=== PATIENT | female | born 1965 | race Caucasian/White ===

== ENCOUNTER 2016-06-20 18:46 | Emergency (ER) | payer SELFPAY ==
[~2016-06-20] VITALS: Ht 165.1 cm; Wt 61.0 kg
[~2016-06-20 18:46] MED LIST: LORA0.5T PO; PROZ20CA11 PO; WELL150T PO
[2016-06-20 18:52] VITALS: BP 145/85; PULSE 93; RESP 16; TEMP 98.1; O2SAT 95
--- NOTE | 2016-06-20 19:06 | PD ---
HPI Chief Complaint: ENT Complaint Time Seen by Provider: 18:56 Travel History International Travel<30 days: No Contact w/Intl Traveler<30days: No Traveled to known affect area: No History of Present Illness HPI 50-year-old female with a history of bipolar disorder currently off her meds comes in with complaints of sore throat, and bilateral ear pain. Patient has some lip lesions from the dry chapped lips. She has not felt well but denies specific fever. She states he's had some stomach upset and vomiting in the last 2 days. Patient normally takes Wellbutrin 350 mg and Prozac 40 mg daily. Patient states she's been out of his meds for quite some time. Patient states history of strep in the past and she is concerned she may have it again. She is allergic to erythromycin and Keflex. PFSH Past Medical History Asthma: No Bipolar Disorder: Yes ([employer]) Anxiety: Yes Depression: Yes Cancer: No Cardiovascular Problems: No Chemotherapy: No COPD: No Diminished Hearing: No Genitourinary: No Musculoskeletal: No Neurologic: No Psychiatric: Yes Reproductive: No Respiratory: Yes (PNEUMOTHORAX TIMES 3) Radiation Therapy: No Sickle Cell Disease: No Sleep Apnea: No Past Surgical History Abdominal Surgery: No AICD: No Arteriovenous Shunt: No Cardiac Surgery: No Ear Surgery: No Endocrine Surgery: No Eye Surgery: No Genitourinary Surgery: No Gynecologic Surgery: Yes (Partial Hyst) Hysterectomy: Yes (PARTIAL) Insulin Pump: No Joint Replacement: No Oral Surgery: No Pacemaker: No Thoracic Surgery: Yes (pneumothorax) Other Surgery: Yes Social History Alcohol Use: Yes (occ beer) Tobacco Use: Yes (1/2) Substance Use: No Allergies-Medications (Allergen,Severity, Reaction): Coded Allergies: Keflex (Verified Allergy, Severe, RASH, 06/20/16) E-Mycin (Verified Allergy, Mild, RASH, 06/20/16) Reported Meds & Prescriptions Reported Meds & Active Scripts Active Bupropion HCl ER 12 HR (Bupropion HCl) 150 Mg Tab 150 Mg PO BID Prozac (Fluoxetine HCl) 40 Mg Cap 40 Mg PO DAILY Amoxicillin 875 Mg Tab 875 Mg PO BID Physical Exam Narrative GENERAL: Patient appears somewhat manic and in mild distress. SKIN: Warm and dry. Normal color. Normal turgor. Patient has Jf the lower quarters bilaterally. HEAD: Atraumatic. Normocephalic. EYES: Pupils equal and round. No scleral icterus. No injection or drainage. ENT: No nasal bleeding or discharge. Mucous membranes pink and moist. Patient has erythematous pharynx with satellite lesions consistent with strep throat with mild to moderate tonsillitis with white exudate. Airway is patent. Uvula is midline. TMs are somewhat dull bilaterally without significant injection. NECK: Trachea midline. No JVD. Supple and nontender with mild anterior cervical lymphadenopathy. CARDIOVASCULAR: Regular rate and rhythm. RESPIRATORY: No accessory muscle use. Clear to auscultation. Breath sounds equal bilaterally. GASTROINTESTINAL: Abdomen soft, non-tender, nondistended. Hepatic and splenic margins not palpable. MUSCULOSKELETAL: Extremities without clubbing, cyanosis, or edema. No obvious deformities. NEUROLOGICAL: Awake and alert. No obvious cranial nerve deficits. Motor grossly within normal limits. Five out of 5 muscle strength in the arms and legs. Normal speech. PSYCHIATRIC: Appropriate mood and affect; insight and judgment normal. Data Data Last Documented VS Vital Signs Date Time Temp Pulse Resp B/P Pulse Ox O2 Delivery O2 Flow Rate FiO2 06/20/16 18:52 98.1 93 16 145/85 95 Orders Amoxicillin (Trimox) (06/20/16 19:15) [facility] Medical Decision Making Medical Screen Exam Complete: Yes Emergency Medical Condition: Yes Differential Diagnosis Pharyngitis. Strep pharyngitis. Otitis media. Need for psych meds. Narrative Course Patient is given amoxicillin 875 mg by mouth now. Patient is to take amoxicillin twice a day 10 days. Patient is given a refill of her bupropion 350 mg #30. Patient is given a refill of Prozac 40 mg daily #30. Patient is to use [id number]-xom-[id number] lip balm such as Carmex for her chapped lips. Patient should follow-up with her primary care physician to ensure improvement in the next several weeks. Patient may return to emergency Department with worsening symptoms if necessary. Diagnosis Primary Impression: Strep pharyngitis Additional Impression: Medication refill Referrals: Primary Care Physician Patient Instructions: General Instructions Additional Instructions: Patient is to take amoxicillin twice a day 10 days. Patient is given a refill of her bupropion 350 mg #30. Patient is given a refill of Prozac 40 mg daily #30. Patient is to use maxx-qeg-hmjogfw lip balm such as Carmex for her chapped lips. Patient should follow-up with her primary care physician to ensure improvement in the next several weeks. Patient may return to emergency Department with worsening symptoms if necessary. Scripts Bupropion HCl ER 12 HR 150 Mg Qyl069 Mg PO BID #60 TAB Prov:Shashi Umaña MD 06/20/16 Fluoxetine (Prozac)40 Mg Cap40 Mg PO DAILY #30 CAP Ref 0 Prov:Shashi Umaña MD 06/20/16 Amoxicillin 875 Mg [id number] Mg PO BID #20 TAB Prov:Shashi Umaña MD 06/20/16 Disposition: 01 DISCHARGE HOME Condition: Stable Brian Diaz Jun 20, 2016 19:06
[2016-06-20] MEDS ORDERED: PROZ40CA PO (19:09)
[2016-06-20] MEDS ORDERED: AMOX875T PO (19:09)
[2016-06-20] MEDS ORDERED: BUPR150T5 PO (19:09)
[2016-06-20] MEDS ORDERED: AMOXICILLIN 875 MG TAB PO ONE (19:15)
== END 2016-06-20 19:25 | disposition home or self-care (01) ==
LOC: PHEFT 18:46
DX: J02.0 Streptococcal pharyngitis (principal); F17.200 Nicotine dependence, unspecified, uncomplicated; Z76.0 Encounter for issue of repeat prescription
CPT/HCPCS: 99283

== ENCOUNTER 2016-06-22 22:39 | Emergency (ER) | payer SELFPAY ==
[~2016-06-22] VITALS: Ht 73.7 cm; Wt 61.4 kg
[~2016-06-22 22:39] MED LIST changes: +AMOX875T PO; +BUPR150T5 PO; -LORA0.5T PO; -PROZ20CA11 PO; +PROZ40CA PO; -WELL150T PO
[2016-06-22 22:45] VITALS: BP 118/67; PULSE 82; RESP 18; TEMP 97.9; O2SAT 95
[2016-06-22 23:09] LABS: BLOOD, URINE NEG (NEG); GLUCOSE,URINE NEG (NEG); KETONE, URINE NEG (NEG); NITRITE,URINE NEG (NEG); PH, URINE 5.5 (5.0-8.5)
[2016-06-22 23:21] LABS: METHOD OF COLLECTION CLEAN CATCH; URINE COLOR STRAW (YELLW/STRAW)
[2016-06-22 23:22] LABS: BACTERIA, URINE OCC /hpf; SQUAMOUS EPITHELIAL CELL URINE 0-5 /hpf (0-5); WBC, URINE 0-2 /hpf (0-5)
[2016-06-22 23:23] LABS: COMMENT (UR) CULT NOT INDICATED; CULTURE IF INDICATED CULT NOT INDICATED
--- NOTE | 2016-06-22 23:23 | PD ---
HPI Chief Complaint: GI Complaint Time Seen by Provider: 23:06 Travel History International Travel<30 days: No Contact w/Intl Traveler<30days: No Traveled to known affect area: No History of Present Illness HPI 50-year-old female complains of sore throat, congestion coughing, abdominal cramping, nausea vomiting diarrhea, lower back pain. Patient states that the symptom has been symptoms have been intermittent for the past few weeks. Patient states that she has low-grade fever at home. Patient states that she has intermittent mild aching headache. Patient denies any visual change. Patient denies any neck pain. Patient denies any chest pain or shortness of breath. Patient states that she has mild intermittent dry cough. Patient states that she has mild intermittent abdominal cramping diffuse over the abdomen. Patient states that she has intermittent nausea vomiting diarrhea. Patient states that she has intermittent headache especially low back area. Patient denies any focal weakness or numbness of extremity. Patient has history of bipolar disorder. Patient has history of spontaneous pneumothorax in the past. Patient status post hysterectomy. Patient was seen in emergency room 2 days ago and given prescription for amoxicillin and refill prescription for bupropion and fluoxetine. Patient states that she has been taking amoxicillin but not the other medications. PFSH Past Medical History Asthma: No Bipolar Disorder: Yes Anxiety: Yes Depression: Yes Cancer: No Cardiovascular Problems: No Chemotherapy: No COPD: No Diminished Hearing: No Gastrointestinal Disorders: No Genitourinary: No Heparin Induced Thrombocytopen: No Implanted Vascular Access Dvce: No Musculoskeletal: No Neurologic: No Psychiatric: Yes Reproductive: No Respiratory: Yes (PNEUMOTHORAX TIMES 3) Radiation Therapy: No Sickle Cell Disease: No Sleep Apnea: No ?: Not Past Surgical History Abdominal Surgery: No AICD: No Arteriovenous Shunt: No Cardiac Surgery: No Ear Surgery: No Endocrine Surgery: No Eye Surgery: No Genitourinary Surgery: No Gynecologic Surgery: Yes (Partial Hyst) Hysterectomy: Yes (PARTIAL) Insulin Pump: No Joint Replacement: No Neurologic Surgery: No Oral Surgery: No Pacemaker: No Thoracic Surgery: Yes (pneumothorax) Other Surgery: Yes Social History Alcohol Use: Yes (occ beer) Tobacco Use: Yes (1PPD) Substance Use: No Allergies-Medications (Allergen,Severity, Reaction): Coded Allergies: Keflex (Verified Allergy, Severe, RASH, 06/22/16) E-Mycin (Verified Allergy, Mild, RASH, 06/22/16) Reported Meds & Prescriptions Reported Meds & Active Scripts Active Bupropion HCl ER 12 HR (Bupropion HCl) 150 Mg Tab 150 Mg PO BID Prozac (Fluoxetine HCl) 40 Mg Cap 40 Mg PO DAILY Amoxicillin 875 Mg Tab 875 Mg PO BID Review of Systems General / Constitutional: Positive: Fever Eyes: No: Visual changes HENT: Positive: Headaches Cardiovascular: No: Chest Pain or Discomfort Respiratory: Positive: Cough, No: Shortness of Breath Gastrointestinal: Positive: Nausea, Vomiting, Diarrhea, Abdominal Pain Genitourinary: No: Dysuria Musculoskeletal: No: Pain Skin: No Rash Neurologic: No: Weakness Psychiatric: No: Depression Endocrine: No: Polydipsia Hematologic/Lymphatic: No: Easy Bruising Physical Exam Narrative GENERAL: Well-nourished, well-developed patient. SKIN: Warm and dry. HEAD: Normocephalic. EYES: No scleral icterus. No injection or drainage. TM: Clear. Throat: Nonerythematous. NECK: Supple, trachea midline. No JVD or lymphadenopathy. CARDIOVASCULAR: Regular rate and rhythm without murmurs, gallops, or rubs. RESPIRATORY: Breath sounds equal bilaterally. No accessory muscle use. GASTROINTESTINAL: Abdomen soft, nondistended. Patient has mild diffuse tenderness over the abdomen. No rebound tenderness. No mass. MUSCULOSKELETAL: No cyanosis, or edema. BACK: Nontender without obvious deformity. No CVA tenderness. Neurologic exam normal. Data Data Last Documented VS Vital Signs Date Time Temp Pulse Resp B/P Pulse Ox O2 Delivery O2 Flow Rate FiO2 06/22/16 22:45 97.9 82 18 118/67 95 Orders Urinalysis - C+S If Indicated (06/22/16 22:51) Complete Blood Count With Diff (06/22/16 23:15) Comprehensive Metabolic Panel (06/22/16 23:15) Thyroid Stimulating Hormone (06/22/16 23:15) Group A Rapid Strep Screen (06/22/16 23:15) Influenzae A/B Antigen (06/22/16 23:15) Chest, Single Ap (06/22/16 23:15) Iv Access Insert/Monitor (06/22/16 23:15) Ecg Monitoring (06/22/16 23:15) Oximetry (06/22/16 23:15) Strep Culture (Group A) (06/22/16 23:30) Labs Laboratory Tests Test 06/22/16 06/22/16 22:50 23:30 Urine Collection Type CLEAN CATCH Urine Color STRAW Urine Turbidity CLEAR Urine pH 5.5 Urine Specific [place] 1.003 Urine Protein NEG mg/dL Urine Glucose (UA) NEG mg/dL Urine Ketones NEG mg/dL Urine Occult Blood NEG Urine Nitrite NEG Urine Bilirubin NEG Urine Leukocyte Esterase NEG Urine WBC 0-2 /hpf Urine Squamous Epithelial 0-5 /hpf Cells Urine Bacteria OCC /hpf Microscopic Urinalysis Comment CULT NOT INDICATED White Blood Count 7.4 TH/MM3 Red Blood Count 4.37 MIL/MM3 Hemoglobin 13.7 GM/DL Hematocrit 40.5 % Mean Corpuscular Volume 92.7 FL Mean Corpuscular Hemoglobin 31.3 PG Mean Corpuscular Hemoglobin 33.8 % Concent Red Cell Distribution Width 13.6 % Platelet Count 230 TH/MM3 Mean Platelet Volume 9.1 FL Neutrophils (%) (Auto) 62.8 % Lymphocytes (%) (Auto) 27.1 % Monocytes (%) (Auto) 6.0 % Eosinophils (%) (Auto) 2.6 % Basophils (%) (Auto) 1.5 % Neutrophils # (Auto) 4.7 TH/MM3 Lymphocytes # (Auto) 2.0 TH/MM3 Monocytes # (Auto) 0.4 TH/MM3 Eosinophils # (Auto) 0.2 TH/MM3 Basophils # (Auto) 0.1 TH/MM3 CBC Comment DIFF FINAL Differential Comment Sodium Level 143 MEQ/L Potassium Level 3.4 MEQ/L Chloride Level 108 MEQ/L Carbon Dioxide Level 26.3 MEQ/L Anion Gap 9 MEQ/L Blood Urea Nitrogen 9 MG/DL Creatinine 0.59 MG/DL Estimat Glomerular Filtration 108 ML/MIN Rate Random Glucose 87 MG/DL Calcium Level 8.4 MG/DL Total Bilirubin 0.4 MG/DL Aspartate Amino Transf 33 U/L (AST/SGOT) Alanine Aminotransferase 36 U/L (ALT/SGPT) Alkaline Phosphatase 94 U/L Total Protein 6.8 GM/DL Albumin 3.4 GM/DL Thyroid Stimulating Hormone 1.470 uIU/ML [facility]rd [facility] Medical Decision Making Medical Screen Exam Complete: Yes Emergency Medical Condition: Yes Interpretation(s) 12:17 AM. CBC within normal limit. Potassium 3.4. CMP otherwise within normal limit. TSH normal. UA is negative. Strep screen negative. Influenza AB antigen negative. Chest x-ray shows no acute consolidation. Differential Diagnosis Differential diagnosis including viral syndrome, cephalgia, arthralgia, bronchitis, pneumonia, gastroenteritis, gastritis, colitis, UTI, pyelonephritis. Narrative Course 50-year-old female with headache, sore throat, coughing congestion, abdominal cramping, nausea vomiting diarrhea, body ache and low back pain. Diagnosis Primary Impression: Gastroenteritis Additional Impression: Viral syndrome Patient Instructions: General Instructions Additional Instructions: Stop amoxicillin. Take medications as needed for aching pain. Follow-up with personal physician. Return if worse. Vlya-sca-[id number] Imodium for diarrhea. Med/Other Pt SpecificInfo: Existing Med Changed Scripts Ondansetron Odt (Zofran Odt)4 Mg Tab4 Mg SL Q6HR PRN (Nausea/Vomiting) #10 TAB Prov:Jackson Sinha MD 06/23/16 Meloxicam (Mobic)15 Mg Tab15 Mg PO DAILY #20 TAB Prov:Jackson Sinha MD 06/23/16 Disposition: 01 DISCHARGE HOME Condition: Stable Jackson Sinha MD Jun 22, 2016 23:23
[2016-06-22 23:49] LABS: AUTOMATED NEUTROPHIL # 4.7 TH/MM3 (1.8-7.7); BASOPHIL # 0.1 TH/MM3 (0-0.2); BASOPHIL % 1.5 % (0.0-2.0); EOSINOPHIL # 0.2 TH/MM3 (0-0.4); EOSINOPHIL % 2.6 % (0.0-4.0); HEMATOCRIT 40.5 % (35.0-46.0); HEMO FLAGS DIFF FINAL; LYMPH % 27.1 % (9.0-44.0); MEAN CELL VOLUME 92.7 FL (80.0-100.0); MEAN CORPUSCULAR HEMOGLOBIN 31.3 PG (27.0-34.0); MEAN CORPUSCULAR HGB CONC 33.8 % (32.0-36.0); NEUT % 62.8 % (16.0-70.0); PLATELET COUNT 230 TH/MM3 (150-450); RED BLOOD COUNT 4.37 MIL/MM3 (4.00-5.30); RED CELL DISTRIBUTION WIDTH 13.6 % (11.6-17.2); WHITE BLOOD COUNT 7.4 TH/MM3 (4.0-11.0)
[2016-06-22 23:56] LABS: CHLORIDE 108 MEQ/L (98-107); POTASSIUM 3.4 MEQ/L (3.5-5.1); SODIUM (NA) 143 MEQ/L (136-145)
[2016-06-23] LABS: ANION GAP 9 MEQ/L (5-15); BICARBONATE 26.3 MEQ/L (21.0-32.0); BLOOD UREA NITROGEN 9 MG/DL (7-18)
[2016-06-23 00:03] LABS: ALT (GPT) 36 U/L (10-53); AST (GOT) 33 U/L (15-37); GLOMERULAR FILTRATION RATE 108 ML/MIN (>89)
[2016-06-23 00:05] LABS: TOTAL BILIRUBIN ADULT 0.4 MG/DL (0.2-1.0)
[2016-06-23 00:06] LABS: ALKALINE PHOSPHATASE 94 U/L (45-117)
--- NOTE | 2016-06-23 00:15 | RADHPO ---
EXAM DATE/TIME: 06/22/2016 23:36 [facility] COMPARISON: No previous studies available for comparison. INDICATIONS : Cough and congestion. MEDICAL HISTORY : None. SURGICAL HISTORY : None. ENCOUNTER: Initial ACUITY: 1 day PAIN SCORE: 5/10 LOCATION: Bilateral chest FINDINGS: A single view of the chest demonstrates the lungs to be symmetrically aerated without evidence of mas s, infiltrate or effusion. The cardiomediastinal contours are unremarkable. Osseous structures are intact. CONCLUSION: No acute disease. Jere Dumont MD on June 23, 2016 at 0:13 Board Certified Radiologist. This report was verified electronically.
[2016-06-23] MEDS ORDERED: ZOFR4TAB3 SL (00:23)
[2016-06-23] MEDS ORDERED: MOBI15TA PO (00:23)
[2016-06-23 00:34] VITALS: BP 142/76; TEMP 98.5
== END 2016-06-23 00:37 | disposition home or self-care (01) ==
LOC: PHED 22:39
DX: K52.9 Noninfective gastroenteritis and colitis, unspecified (principal); B34.9 Viral infection, unspecified; M54.5 Low back pain; R51 Headache; F31.9 Bipolar disorder, unspecified
CPT/HCPCS: 71010; 80053; 81001; 84443; 85025; 87081; 87804; 87880; 99284

== ENCOUNTER 2016-06-25 01:25 | Emergency (ER) | payer SELFPAY ==
[~2016-06-25] VITALS: Ht 165.1 cm; Wt 61.0 kg
[~2016-06-25 01:25] MED LIST changes: +MOBI15TA PO; +ZOFR4TAB3 SL
[2016-06-25 01:28] VITALS: BP 130/85; PULSE 88; RESP 15; TEMP 97.9; O2SAT 95
[2016-06-25] MEDS ORDERED: LORA-392 PO (08:37)
--- NOTE | 2016-06-25 08:47 | PD ---
HPI Chief Complaint: Abdominal Pain Time Seen by Provider: 08:34 Travel History International Travel<30 days: No Contact w/Intl Traveler<30days: No Traveled to known affect area: No History of Present Illness HPI This is a 50-year-old female with history of bipolar disorder who presents to the emergency department with lower abdominal pain that's been present for 2 days associated with bleeding from her vagina and bleeding from her rectum. She has a history of a partial hysterectomy. Her pain is constant, moderate severity, associated with intermittent vomiting with no fevers and chills. She says she's been having this pain intermittently for 6 months. She also says she 's been nauseous for 6 months. She is somewhat argumentative when she presents her history and is quite tangential so history is limited. PFSH Past Medical History Asthma: No Bipolar Disorder: Yes Anxiety: Yes Depression: Yes Cancer: No Cardiovascular Problems: No Chemotherapy: No COPD: No Diminished Hearing: No Gastrointestinal Disorders: No Genitourinary: No Heparin Induced Thrombocytopen: No Implanted Vascular Access Dvce: No Musculoskeletal: No Neurologic: No Psychiatric: Yes Reproductive: No Respiratory: Yes Radiation Therapy: No Sickle Cell Disease: No Sleep Apnea: No ?: Not Past Surgical History Abdominal Surgery: No AICD: No Arteriovenous Shunt: No Cardiac Surgery: No Ear Surgery: No Endocrine Surgery: No Eye Surgery: No Genitourinary Surgery: No Gynecologic Surgery: Yes (Partial Hyst) Hysterectomy: Yes Insulin Pump: No Joint Replacement: No Neurologic Surgery: No Oral Surgery: No Pacemaker: No Thoracic Surgery: Yes (pneumothorax) Tonsillectomy: Yes Other Surgery: Yes Social History Alcohol Use: Yes () Tobacco Use: Yes (/2 ppk) Substance Use: Yes Allergies-Medications (Allergen,Severity, Reaction): Coded Allergies: Keflex (Verified Allergy, Severe, RASH, 06/25/16) E-Mycin (Verified Allergy, Mild, RASH, 06/25/16) Reported Meds & Prescriptions Reported Meds & Active Scripts Active Zofran Odt (Ondansetron Odt) 4 Mg Tab 4 Mg SL Q6HR PRN Mobic (Meloxicam) 15 Mg Tab 15 Mg PO DAILY Bupropion HCl ER 12 HR (Bupropion HCl) 150 Mg Tab 150 Mg PO BID Prozac (Fluoxetine HCl) 40 Mg Cap 40 Mg PO DAILY Amoxicillin 875 Mg Tab 875 Mg PO BID Reported Ativan (Lorazepam) 0.5 Mg Tab 0.5 Mg PO DAILY PRN Review of Systems ROS Limitations: Poor Historian Physical Exam Narrative GENERAL:Well appearing, no acute distress SKIN: Warm and dry. HEAD: Atraumatic. Normocephalic. EYES: Pupils equal and round. No injection or drainage. ENT: Moist mucous membranes NECK: Trachea midline. CARDIOVASCULAR: Regular rate and rhythm. No murmur appreciated. RESPIRATORY: Clear to auscultation. Breath sounds equal bilaterally. GASTROINTESTINAL: Abdomen soft, mildly tender to palpation in the lower abdomen with no rebound or guarding. HUB BANDER: No blood MUSCULOSKELETAL: No obvious deformities. NEUROLOGICAL: Awake and alert. No obvious cranial nerve deficits. Moving all extremities. PSYCHIATRIC: Argumentative, tangential, agitated Data Data Last Documented VS Vital Signs Date Time Temp Pulse Resp B/P Pulse Ox O2 Delivery O2 Flow Rate FiO2 06/25/16 10:17 68 16 140/60 98 06/25/16 01:28 97.9 Room Air Orders Complete Blood Count With Diff (06/25/16 08:44) Basic Metabolic Panel (Bmp) (06/25/16 08:44) Urinalysis - C+S If Indicated (06/25/16 08:44) ^ Insert Iv (06/25/16 08:44) Ct Abd/Pel W Iv Contrast(Rout) (06/25/16 ) Wet Prep Profile (06/25/16 08:44) Gc And Chlamydia Pcr (06/25/16 08:44) Iohexol 350 Inj (Omnipaque 350 Inj) (06/25/16 09:49) Labs Laboratory Tests Test 06/25/16 09:00 White Blood Count 6.4 TH/MM3 Red Blood Count 4.32 MIL/MM3 Hemoglobin 13.6 GM/DL Hematocrit 39.8 % Mean Corpuscular Volume 92.2 FL Mean Corpuscular Hemoglobin 31.4 PG Mean Corpuscular Hemoglobin 34.0 % Concent Red Cell Distribution Width 14.2 % Platelet Count 247 TH/MM3 Mean Platelet Volume 9.0 FL Neutrophils (%) (Auto) 59.8 % Lymphocytes (%) (Auto) 29.6 % Monocytes (%) (Auto) 7.3 % Eosinophils (%) (Auto) 2.3 % Basophils (%) (Auto) 1.0 % Neutrophils # (Auto) 3.8 TH/MM3 Lymphocytes # (Auto) 1.9 TH/MM3 Monocytes # (Auto) 0.5 TH/MM3 Eosinophils # (Auto) 0.1 TH/MM3 Basophils # (Auto) 0.1 TH/MM3 CBC Comment DIFF FINAL Differential Comment Sodium Level 141 MEQ/L Potassium Level 3.3 MEQ/L Chloride Level 106 MEQ/L Carbon Dioxide Level 28.4 MEQ/L Anion Gap 7 MEQ/L Blood Urea Nitrogen 6 MG/DL Creatinine 0.61 MG/DL Estimat Glomerular Filtration 104 ML/MIN Rate Random Glucose 84 MG/DL Calcium Level 8.2 MG/DL MDM Medical Decision Making Medical Screen Exam Complete: Yes Emergency Medical Condition: Yes Interpretation(s) Afebrile, no tachycardia No leukocytosis Electrolytes are reassuring Mild hypokalemia Differential Diagnosis Gastroenteritis, HUB BANDER malignancy, GI bleeding, anemia Narrative Course This is a 50-year-old female who presents to the emergency department with bleeding and abdominal pain. She is very hard to get a history from. It's not clear to me despite multiple rounds of questioning whether her bleeding is predominantly coming from her vagina or her rectum. She is very tangential and gets very angry when questions are repeated. I decided to get labs, CT imaging and perform a pelvic exam. Everything was unremarkable. I think the patient is safe for follow-up with an outpatient primary care physician. I did recommend that if she is having bleeding from her rectum she should have an outpatient colonoscopy. Diagnosis Primary Impression: Abdominal pain Qualified Code: R10.84 - Generalized abdominal pain Patient Instructions: General Instructions Additional Instructions: If you develop severe or worsening abdominal pain, fever>100.4, persistent vomiting or inability to eat or drink return to the emergency department immediately. If you are having bleeding from your rectum follow-up with a ruby [employer] rails web developer to have a colonoscopy. You have an incidental 9 mm lesion on your right lobe of your liver on your CT scan. This should be followed up by your primary care physician. Med/Other Pt SpecificInfo: No Change to Meds Disposition: 01 DISCHARGE HOME Condition: Stable Ingrid Gallagher MD Jun 25, 2016 08:47
[2016-06-25 09:18] LABS: AUTOMATED NEUTROPHIL # 3.8 TH/MM3 (1.8-7.7); BASOPHIL # 0.1 TH/MM3 (0-0.2); EOSINOPHIL # 0.1 TH/MM3 (0-0.4); EOSINOPHIL % 2.3 % (0.0-4.0); HEMATOCRIT 39.8 % (35.0-46.0); HEMO FLAGS DIFF FINAL; LYMPH % 29.6 % (9.0-44.0); LYMPHOCYTE # 1.9 TH/MM3 (1.0-4.8); MEAN CELL VOLUME 92.2 FL (80.0-100.0); MEAN CORPUSCULAR HEMOGLOBIN 31.4 PG (27.0-34.0); MONO % 7.3 % (0.0-8.0); NEUT % 59.8 % (16.0-70.0); PLATELET COUNT 247 TH/MM3 (150-450); RED BLOOD COUNT 4.32 MIL/MM3 (4.00-5.30); RED CELL DISTRIBUTION WIDTH 14.2 % (11.6-17.2); WHITE BLOOD COUNT 6.4 TH/MM3 (4.0-11.0)
[2016-06-25 09:30] LABS: BICARBONATE 28.4 MEQ/L (21.0-32.0); POTASSIUM 3.3 MEQ/L (3.5-5.1)
[2016-06-25] MEDS ORDERED: IOHEXOL 350 MG/ML 10 ML VIAL (for RAD DIAG) IV ONE (09:49)
--- NOTE | 2016-06-25 10:06 | RADRPT ---
EXAM DATE/TIME: 06/25/2016 09:48 [facility] COMPARISON: No previous studies available for comparison. INDICATIONS : Abdominal pain for 2 days with rectal/vaginal bleeding IV CONTRAST: 96 cc Omnipaque 350 (iohexol) IV ORAL CONTRAST: No oral contrast ingested. RADIATION DOSE: 5.45 CTDIvol (mGy) MEDICAL HISTORY : Carcinoma, breast. SURGICAL HISTORY : Hysterectomy. ENCOUNTER: Initial ACUITY: 2 days PAIN SCALE: 5/10 LOCATION: Bilateral lower quadrant TECHNIQUE: Volumetric scanning of the abdomen and pelvis was performed. Using automated exposure control and ad justment of the mA and/or kV according to patient size, radiation dose was kept as low as reasonably achievable to obtain optimal diagnostic quality images. FINDINGS: The limited portion of the lung base visualized is clear. Examination of the liver demonstrates a 9 mm low attenuation lesion in the posterior aspect of the ri ght lobe. This is too small to definitively characterize. The spleen, pancreas, adrenal glands and kidneys are normal in appearance. The exam does demonstrate a 1.4 cm splenule in the left upper abdomen. There is no free intraperitoneal air. No free intraperitoneal fluid is identified. There is no retrop eritoneal lymphadenopathy. The aorta is normal in caliber. No free intraperitoneal air or free intraperitoneal fluid is identified. No findings to indicate a marcus wel obstruction are seen. There is no free fluid within the pelvis. The patient is post hysterectomy. No iliac or inguinal adenopathy is present. The visualized bony structures demonstrate mild degenerative changes but are otherwise intact. CONCLUSION: 1. The patient is post hysterectomy. 2. No findings to indicate a bowel obstruction identified. 3. Incidental 9 mm low-attenuation lesion in the right lobe of the liver. This is too small to defini tively characterize. Santino Fritz MD on June 25, 2016 at 10:00 Board Certified Radiologist. This report was verified electronically.
[2016-06-25 10:17] VITALS: BP 140/60; PULSE 68; RESP 16; O2SAT 98
[2016-06-25 10:53] LABS: BACTERIA, URINE RARE /hpf; BLOOD, URINE NEG (NEG); COMMENT (UR) CULT NOT INDICATED; CULTURE IF INDICATED CULT NOT INDICATED; GLUCOSE,URINE NEG (NEG); KETONE, URINE NEG (NEG); MUCUS URINE FEW /lpf (OCC); NITRITE,URINE NEG (NEG); SQUAMOUS EPITHELIAL CELL URINE 1 /hpf (0-5); URINE COLOR YELLOW (YELLW/STRAW)
[2016-06-25 18:55] LABS: CHLAMYDIA PCR NOT DETECTED (NOT DETECT); NEISSERIA PCR NOT DETECTED (NOT DETECT)
== END 2016-06-25 11:12 | disposition home or self-care (01) ==
LOC: NEPE 01:25
DX: R10.30 Lower abdominal pain, unspecified (principal); K62.5 Hemorrhage of anus and rectum; F17.210 Nicotine dependence, cigarettes, uncomplicated
CPT/HCPCS: 74177; 80048; 81001; 85025; 87491; 87591; 99284; Q9967

== ENCOUNTER 2016-12-12 02:27 | Emergency (ER) | payer SELFPAY ==
[~2016-12-12] VITALS: Ht 165.1 cm; Wt 66.0 kg
[~2016-12-12 02:27] MED LIST changes: +LORA-392 PO
[2016-12-12 02:30] VITALS: BP 130/65; PULSE 99; RESP 16; TEMP 97.7; O2SAT 98
[2016-12-12] MEDS ORDERED: KETOROLAC TROMETHAMINE 30 MG/ML (IVP) VIAL IV PUSH ONE (02:45)
[2016-12-12] MEDS ORDERED: ALUMINUM/MAGNESIUM/SIMETH 30 ML CUP PO ONE (02:45)
[2016-12-12] MEDS ORDERED: ORPHENADRINE INJ 60 MG/2 ML AMP IV ONE (02:45)
[2016-12-12] MEDS ORDERED: LIDOCAINE VISCOUS 2% SOLN 15 ML UDC PO ONE (02:45)
[2016-12-12] MEDS ORDERED: ONDANSETRON HCL 4 MG/2 ML VIAL IVP ONE (02:45)
--- NOTE | 2016-12-12 02:47 | PD ---
HPI Chief Complaint: Back/ Neck Pain or Injury Time Seen by Provider: 02:38 Travel History International Travel<30 days: No Contact w/Intl Traveler<30days: No Traveled to known affect area: No History of Present Illness HPI 50-year-old female presents for evaluation of back pain, abdominal pain. Symptoms started 3 weeks ago. She reports a pain in her lower back which is aching, constant, worse with movement. She reports an epigastric pain as well for the same amount of time. She reports a history of chronic lower back pain secondary to degenerative disc disease and she feels like this may be the issue. She has been using [id number] medications which have not been helping with her pain. She endorses occasional nausea. Denies vomiting, diarrhea, incontinence, saddle anesthesia, fevers or chills, flank pain, dysuria , chest pain, shortness of breath. No other complaints. PFSH Past Medical History Asthma: No Bipolar Disorder: Yes Anxiety: Yes Depression: Yes Cancer: No Cardiovascular Problems: Yes (HTN) Chemotherapy: No COPD: No Diminished Hearing: No Gastrointestinal Disorders: No Genitourinary: No Heparin Induced Thrombocytopen: No Implanted Vascular Access Dvce: No Musculoskeletal: No Neurologic: No Psychiatric: Yes Reproductive: No Respiratory: Yes Radiation Therapy: No Sickle Cell Disease: No Sleep Apnea: No ?: Not Past Surgical History Abdominal Surgery: No AICD: No Arteriovenous Shunt: No Cardiac Surgery: No Ear Surgery: No Endocrine Surgery: No Eye Surgery: No Genitourinary Surgery: No Gynecologic Surgery: Yes (Partial Hyst) Hysterectomy: Yes Insulin Pump: No Joint Replacement: No Neurologic Surgery: No Oral Surgery: No Pacemaker: No Thoracic Surgery: Yes (pneumothorax) Tonsillectomy: Yes Other Surgery: Yes Social History Alcohol Use: Yes () Tobacco Use: Yes (1/2 ppk) Substance Use: Yes Allergies-Medications (Allergen,Severity, Reaction): Coded Allergies: cephalexin (Unverified Allergy, Severe, RASH, 12/12/16) erythromycin base (Unverified Allergy, Mild, RASH, 12/12/16) Reported Meds & Prescriptions Reported Meds & Active Scripts Active Macrobid (Nitrofurantoin Monoh/Nitrofur Macro) 100 Mg Cap 100 Mg PO BID 7 Days Review of Systems Except as stated in HPI: all other systems reviewed are Neg Physical Exam Narrative GENERAL: Well-developed well-nourished female in no acute distress SKIN: Warm and dry. HEAD: Atraumatic. Normocephalic. EYES: Pupils equal and round. No scleral icterus. No injection or drainage. ENT: No nasal bleeding or discharge. Mucous membranes pink and moist. NECK: Trachea midline. No JVD. CARDIOVASCULAR: Regular rate and rhythm. No murmur appreciated. RESPIRATORY: No accessory muscle use. Clear to auscultation. Breath sounds equal bilaterally. GASTROINTESTINAL: Abdomen soft, mild epigastric tenderness without guarding. No CVA tenderness. MUSCULOSKELETAL: No obvious deformities. Normal gait. No tenderness to palpation along the cervical thoracic or lumbar midline spine. NEUROLOGICAL: Awake and alert. No obvious cranial nerve deficits. Motor grossly within normal limits. Normal speech. PSYCHIATRIC: Appropriate mood and affect; insight and judgment normal. Data Data Last Documented VS Vital Signs Date Time Temp Pulse Resp B/P Pulse Ox O2 Delivery O2 Flow Rate FiO2 12/12/16 02:45 16 12/12/16 02:30 97.7 99 130/65 98 Orders Complete Blood Count With Diff (12/12/16 02:43) Comprehensive Metabolic Panel (12/12/16 02:43) Lipase (12/12/16 02:43) Urinalysis - C+S If Indicated (12/12/16 02:43) Ct Abd/Pel W Iv Contrast(Rout) (12/12/16 02:43) Ondansetron Inj (Zofran Inj) (12/12/16 02:45) Al-Mag Hy-Si 40-40-4 Mg/Ml Liq (Mag-Al P (12/12/16 02:45) Lidocaine 2% Viscous (Xylocaine 2% Visco (12/12/16 02:45) Ketorolac Inj (Toradol Inj) (12/12/16 02:45) Orphenadrine Inj (Norflex Inj) (12/12/16 02:45) Iohexol 350 Inj (Omnipaque 350 Inj) (12/12/16 03:09) Potassium Chloride (Kcl) (12/12/16 03:45) Urine Culture (12/12/16 02:45) Nitrofurantoin Monohyd Macrocr (Macrobid (12/12/16 04:15) Labs Laboratory Tests Test 12/12/16 02:45 White Blood Count 9.2 TH/MM3 Red Blood Count 4.22 MIL/MM3 Hemoglobin 13.8 GM/DL Hematocrit 40.7 % Mean Corpuscular Volume 96.3 FL Mean Corpuscular Hemoglobin 32.6 PG Mean Corpuscular Hemoglobin 33.8 % Concent Red Cell Distribution Width 14.0 % Platelet Count 169 TH/MM3 Mean Platelet Volume 10.6 FL Neutrophils (%) (Auto) 62.3 % Lymphocytes (%) (Auto) 27.3 % Monocytes (%) (Auto) 7.0 % Eosinophils (%) (Auto) 2.4 % Basophils (%) (Auto) 1.0 % Neutrophils # (Auto) 5.7 TH/MM3 Lymphocytes # (Auto) 2.5 TH/MM3 Monocytes # (Auto) 0.6 TH/MM3 Eosinophils # (Auto) 0.2 TH/MM3 Basophils # (Auto) 0.1 TH/MM3 CBC Comment DIFF FINAL Differential Comment Urine Color YELLOW Urine Turbidity CLEAR Urine pH 5.0 Urine Specific [place] 1.013 Urine Protein NEG mg/dL Urine Glucose (UA) NEG mg/dL Urine Ketones NEG mg/dL Urine Occult Blood NEG Urine Nitrite NEG Urine Bilirubin NEG Urine Urobilinogen LESS THAN 2.0 MG/DL Urine Leukocyte Esterase NEG Urine RBC LESS THAN 1 /hpf Urine WBC 5 /hpf Urine WBC Clumps RARE Urine Squamous Epithelial 1 /hpf Cells Urine Bacteria FEW /hpf Urine Mucus FEW /lpf Microscopic Urinalysis Comment CULTURE INDICATED Sodium Level 144 MEQ/L Potassium Level 3.3 MEQ/L Chloride Level 110 MEQ/L Carbon Dioxide Level 22.7 MEQ/L Anion Gap 11 MEQ/L Blood Urea Nitrogen 17 MG/DL Creatinine 0.85 MG/DL Estimat Glomerular Filtration 71 ML/MIN Rate Random Glucose 101 MG/DL Calcium Level 9.1 MG/DL Total Bilirubin 0.4 MG/DL Aspartate Amino Transf 110 U/L (AST/SGOT) Alanine Aminotransferase 160 U/L (ALT/SGPT) Alkaline Phosphatase 136 U/L Total Protein 7.3 GM/DL Albumin 3.8 GM/DL Lipase 160 U/L [facility] Medical Decision Making Medical Screen Exam Complete: Yes Emergency Medical Condition: Yes Medical Record Reviewed: Yes Differential Diagnosis Gen. this disease, acute exacerbation of chronic back pain, pancreatitis, gastritis, cholecystitis, aortic dissection, renal stone Narrative Course 50-year-old female who reports chronic lower back pain secondary to degenerative disc disease. for The past 3 weeks she has had worse lower back pain and she is also had epigastric pain as well. On examination she has mild epigastric tenderness to palpation. Physical examination is otherwise unremarkable. CT abdomen and pelvis reveals no acute abnormalities. CBC is normal. CMP reveals mildly elevated liver enzymes. Urinalysis reveals diabetes he calms causing reflex urine culture. Therefore the patient be started on Macrobid pending culture results. Potassium was slightly low, she was given oral potassium chloride. She is stable for discharge. Diagnosis Primary Impression: Back pain Qualified Code: M54.9 - Back pain, unspecified back location, unspecified back pain laterality, unspecified chronicity Additional Impressions: Pyuria Hypokalemia Additional Instructions: Medication as prescribed. Tylenol or Motrin for discomfort. Follow-up with primary care physician. Return for any emergent medical conditions. Med/Other Pt SpecificInfo: Prescription(s) given Scripts Nitrofurantoin Monohydrate Macrocrystals (Macrobid)100 Mg [id number] Mg PO BID 7 Days Ref 0 Prov:Jaida Thomason MD 12/12/16 Disposition: 01 DISCHARGE HOME Condition: Stable Duc Gonzalez Dec 12, 2016 02:47
[2016-12-12] MEDS ORDERED: IOHEXOL 350 MG/ML 10 ML VIAL (for RAD DIAG) IV ONE (03:09)
[2016-12-12 03:12] LABS: AUTOMATED NEUTROPHIL # 5.7 TH/MM3 (1.8-7.7); BASOPHIL # 0.1 TH/MM3 (0-0.2); EOSINOPHIL # 0.2 TH/MM3 (0-0.4); EOSINOPHIL % 2.4 % (0.0-4.0); HEMATOCRIT 40.7 % (35.0-46.0); HEMO FLAGS DIFF FINAL; LYMPH % 27.3 % (9.0-44.0); LYMPHOCYTE # 2.5 TH/MM3 (1.0-4.8); MEAN CELL VOLUME 96.3 FL (80.0-100.0); MEAN CORPUSCULAR HEMOGLOBIN 32.6 PG (27.0-34.0); MEAN CORPUSCULAR HGB CONC 33.8 % (32.0-36.0); NEUT % 62.3 % (16.0-70.0); PLATELET COUNT 169 TH/MM3 (150-450); RED BLOOD COUNT 4.22 MIL/MM3 (4.00-5.30); WHITE BLOOD COUNT 9.2 TH/MM3 (4.0-11.0)
--- NOTE | 2016-12-12 03:19 | RADRPT ---
EXAM DATE/TIME: 12/12/2016 03:03 [facility] COMPARISON: No previous studies available for comparison. INDICATIONS : Epigastric abdominal pain with back pain. IV CONTRAST: 100 cc Omnipaque 350 (iohexol) IV ORAL CONTRAST: No oral contrast ingested. RADIATION DOSE: 6.45 CTDIvol (mGy) MEDICAL HISTORY : Hypertension. SURGICAL HISTORY : Hysterectomy. ENCOUNTER: Initial ACUITY: 2 weeks PAIN SCALE: 8/10 LOCATION: [facility] TECHNIQUE: Volumetric scanning of the abdomen and pelvis was performed. Using automated exposure control and ad justment of the mA and/or kV according to patient size, radiation dose was kept as low as reasonably achievable to obtain optimal diagnostic quality images. DICOM format image data is available electro nically for review and comparison. FINDINGS: Lung bases are clear. Mild fatty liver. Probable small cyst or hemangioma posterior right lobe liver. Spleen, adrenals, kidneys and pancreas unremarkable. No free fluid. No bowel obstruction. No adenopathy. There is moderate degenerative disc disease in th e spine. CONCLUSION: 1. No acute findings. Fatty liver. Postoperative hysterectomy. No significant change from June. Jere Dumont MD on December 12, 2016 at 3:10 Board Certified Radiologist. This report was verified electronically.
[2016-12-12 03:31] LABS: ALT (GPT) 160 U/L (10-53); ANION GAP 11 MEQ/L (5-15); AST (GOT) 110 U/L (15-37); BICARBONATE 22.7 MEQ/L (21.0-32.0); BLOOD UREA NITROGEN 17 MG/DL (7-18); CHLORIDE 110 MEQ/L (98-107); GLOMERULAR FILTRATION RATE 71 ML/MIN (>89); POTASSIUM 3.3 MEQ/L (3.5-5.1); SODIUM (NA) 144 MEQ/L (136-145)
[2016-12-12 03:34] LABS: ALKALINE PHOSPHATASE 136 U/L (45-117); TOTAL BILIRUBIN ADULT 0.4 MG/DL (0.2-1.0)
[2016-12-12] MEDS ORDERED: POTASSIUM CHLORIDE 20 MEQ CONTROLLED RELEASE TAB PO ONE (03:45)
[2016-12-12 03:51] LABS: BACTERIA, URINE FEW /hpf; BLOOD, URINE NEG (NEG); COMMENT (UR) CULTURE INDICATED; CULTURE IF INDICATED CULTURE INDICATED; GLUCOSE,URINE NEG (NEG); KETONE, URINE NEG (NEG); MUCUS URINE FEW /lpf (OCC); NITRITE,URINE NEG (NEG); SQUAMOUS EPITHELIAL CELL URINE 1 /hpf (0-5); URINE COLOR YELLOW (YELLW/STRAW)
[2016-12-12] MEDS ORDERED: MACR100C2 PO (04:09)
[2016-12-12] MEDS ORDERED: NITROFURANTOIN MONOHYD MACROCR 100 MG CAP PO ONE (04:15)
== END 2016-12-12 06:36 | disposition home or self-care (01) ==
LOC: NEPD 02:27
DX: M54.5 Low back pain (principal); N39.0 Urinary tract infection, site not specified; E87.6 Hypokalemia; R10.13 Epigastric pain; R11.0 Nausea; I10 Essential (primary) hypertension; F17.200 Nicotine dependence, unspecified, uncomplicated; Z86.59 Personal history of other mental and behavioral disorders; Z86.79 Personal history of other diseases of the circulatory system
CPT/HCPCS: 74177; 80053; 81001; 83690; 85025; 87086; 96374; 96375; 99285; J1885; J2360; J2405; Q9967

== ENCOUNTER 2017-05-13 15:52 | Emergency (ER) | payer SELFPAY ==
[~2017-05-13] VITALS: Ht 165.1 cm; Wt 59.5 kg
[~2017-05-13 15:52] MED LIST changes: -AMOX875T PO; -BUPR150T5 PO; -LORA-392 PO; +MACR100C2 PO; -MOBI15TA PO; -PROZ40CA PO; -ZOFR4TAB3 SL
[2017-05-13 15:54] VITALS: BP 135/71; PULSE 77; RESP 16; TEMP 98.6; O2SAT 97
[2017-05-13] MEDS ORDERED: ADVI200T17 PO (16:49)
[2017-05-13] MEDS ORDERED: PROZ40CA PO (16:49)
--- NOTE | 2017-05-13 17:04 | PD ---
HPI Chief Complaint: GI Complaint Time Seen by Provider: 16:58 Travel History International Travel<30 days: No Contact w/Intl Traveler<30days: No Traveled to known affect area: No History of Present Illness HPI 51-year-old female with history of bipolar disorder and manic depression, here for evaluation of several different complaints. The one she tells me she would like a psychiatric evaluation. She has been arguing with her significant other and feels more upset than usual. She is not suicidal or homicidal. She reports that she went to [facility] in an attempt to obtain her medications, however they would not give it to her. She has not been taking anything for bipolar disorder. She is requesting a refill for Prozac. She also tells me that she has a history of hysterectomy and that for the last year she has been having intermittent vaginal bleeding as well as lower abdominal pain that has been sharp. Currently she does not have any pain. She is unsure if she is bleeding currently. She believes she may have ovarian cyst. She has not seen a marine pilot for this. PFSH Past Medical History Asthma: No Bipolar Disorder: Yes Anxiety: Yes Depression: Yes Cancer: No Cardiovascular Problems: Yes (HTN) Chemotherapy: No COPD: No Diabetes: No Diminished Hearing: No Gastrointestinal Disorders: No Genitourinary: No Heparin Induced Thrombocytopen: No Implanted Vascular Access Dvce: No Musculoskeletal: No Neurologic: No Psychiatric: Yes Reproductive: No Respiratory: Yes Radiation Therapy: No Sickle Cell Disease: No Sleep Apnea: No Tetanus Vaccination: < 5 Years Influenza Vaccination: No ?: Not Past Surgical History Abdominal Surgery: No AICD: No Arteriovenous Shunt: No Cardiac Surgery: No Ear Surgery: No Endocrine Surgery: No Eye Surgery: No Genitourinary Surgery: No Gynecologic Surgery: Yes (Partial Hyst) Hysterectomy: Yes Insulin Pump: No Joint Replacement: No Neurologic Surgery: No Oral Surgery: No Pacemaker: No Thoracic Surgery: Yes (pneumothorax) Tonsillectomy: Yes Other Surgery: Yes Social History Alcohol Use: Yes (DAILY BEER) Tobacco Use: Yes (1/2 ppk) Substance Use: No Allergies-Medications (Allergen,Severity, Reaction): Coded Allergies: cephalexin (Unverified Allergy, Severe, RASH, 05/13/17) erythromycin base (Unverified Allergy, Mild, RASH, 05/13/17) Reported Meds & Prescriptions Reported Meds & Active Scripts Active Reported Advil Pm (Ibuprofen-Diphenhydramine) 200-38 Mg Tab 1 Tab PO HS PRN Prozac (Fluoxetine HCl) 40 Mg Cap 40 Mg PO DAILY Review of Systems Except as stated in HPI: all other systems reviewed are Neg Physical Exam Narrative GENERAL: Well-developed, well-nourished, no apparent distress. SKIN: Focused skin assessment warm/dry. No pallor. HEAD: Atraumatic. Normocephalic. EYES: Pupils equal and round. No scleral icterus. No injection or drainage. ENT: No nasal bleeding or discharge. Mucous membranes pink and moist. Poor dentition. NECK: Trachea midline. No JVD. CARDIOVASCULAR: Regular rate and rhythm. RESPIRATORY: No accessory muscle use. Clear to auscultation. Breath sounds equal bilaterally. GASTROINTESTINAL: Abdomen soft, non-tender, nondistended. ZOO VETERINARIAN: Exam performed in the presence of female nurse. Normal external genitalia. No identifiable cervix. No vaginal bleeding or discharge. No masses. MUSCULOSKELETAL: No obvious deformities. No clubbing. No cyanosis. No edema. NEUROLOGICAL: Awake and alert. No obvious cranial nerve deficits. Motor grossly within normal limits. Normal speech. PSYCHIATRIC: Poor eye contact. Racing thoughts. Data Data Last Documented VS Vital Signs Date Time Temp Pulse Resp B/P (MAP) Pulse Ox O2 Delivery O2 Flow Rate FiO2 05/13/17 16:41 20 05/13/17 15:54 98.6 77 135/71 (92) 97 Room Air Orders Orders Complete Blood Count With Diff (05/13/17 17:01) Comprehensive Metabolic Panel (05/13/17 17:01) Psych Screen (05/13/17 17:01) Drug Screen, Random Urine (05/13/17 17:01) Alcohol (Ethanol) (05/13/17 17:01) Gc And Chlamydia Pcr (05/13/17 17:01) Wet Prep Profile (05/13/17 17:01) Prothrombin Time / Inr (Pt) (05/13/17 17:01) Act Partial Throm Time (Ptt) (05/13/17 17:01) Urinalysis - C+S If Indicated (05/13/17 17:01) Potassium Chloride (Kcl) (05/13/17 18:30) Labs Laboratory Tests Test 05/13/17 16:45 05/13/17 17:15 05/13/17 17:20 05/13/17 19:05 Urine Opiates Screen NEG Urine Barbiturates Screen NEG Urine Amphetamines Screen NEG Urine Benzodiazepines Screen NEG Urine Cocaine Screen POS Urine Cannabinoids Screen NEG Urine Color YELLOW Urine Turbidity HAZY Urine pH 7.5 Urine Specific [place] 1.008 Urine Protein NEG mg/dL Urine Glucose (UA) NEG mg/dL Urine Ketones NEG mg/dL Urine Occult Blood NEG Urine Nitrite NEG Urine Bilirubin NEG Urine Urobilinogen LESS THAN 2.0 MG/DL Urine Leukocyte Esterase TRACE Urine RBC 1 /hpf Urine WBC 1 /hpf Urine Squamous Epithelial Cells 1 /hpf Urine Amorphous Sediment RARE Urine Mucus FEW /lpf Microscopic Urinalysis Comment CULT NOT INDICATED White Blood Count 6.7 TH/MM3 Red Blood Count 3.69 MIL/MM3 Hemoglobin 12.0 GM/DL Hematocrit 35.5 % Mean Corpuscular Volume 96.3 FL Mean Corpuscular Hemoglobin 32.6 PG Mean Corpuscular Hemoglobin Concent 33.8 % Red Cell Distribution Width 13.7 % Platelet Count 238 TH/MM3 Mean Platelet Volume 9.8 FL Neutrophils (%) (Auto) 65.4 % Lymphocytes (%) (Auto) 23.9 % Monocytes (%) (Auto) 8.2 % Eosinophils (%) (Auto) 1.6 % Basophils (%) (Auto) 0.9 % Neutrophils # (Auto) 4.4 TH/MM3 Lymphocytes # (Auto) 1.6 TH/MM3 Monocytes # (Auto) 0.6 TH/MM3 Eosinophils # (Auto) 0.1 TH/MM3 Basophils # (Auto) 0.1 TH/MM3 CBC Comment DIFF FINAL Differential Comment Prothrombin Time 10.9 SEC Prothromb Time International Ratio 1.1 RATIO Activated Partial Thromboplast Time 32.1 SEC Blood Urea Nitrogen 7 MG/DL Creatinine 0.51 MG/DL Random Glucose 92 MG/DL Total Protein 6.8 GM/DL Albumin 3.0 GM/DL Calcium Level 8.8 MG/DL Alkaline Phosphatase 98 U/L Aspartate Amino Transf (AST/SGOT) 52 U/L Alanine Aminotransferase (ALT/SGPT) 41 U/L Total Bilirubin 0.4 MG/DL Sodium Level 139 MEQ/L Potassium Level 3.1 MEQ/L Chloride Level 102 MEQ/L Carbon Dioxide Level 29.1 MEQ/L Anion Gap 8 MEQ/L Estimat Glomerular Filtration Rate 127 ML/MIN Ethyl Alcohol Level 16 MG/DL Clue Cells (Wet Prep) NONE SEEN Vaginal Trichomonas (Wet Prep) NONE SEEN Vaginal Yeast (Wet Prep) NONE SEEN MDM Medical Decision Making Medical Screen Exam Complete: Yes Emergency Medical Condition: Yes Medical Record Reviewed: Yes Differential Diagnosis Bipolar disorder, manic depression, ovarian cyst, ovarian cancer, vaginal cancer , BV, Trichomonas Narrative Course Vital signs are within normal limits. CBC is unremarkable. CMP is remarkable for potassium 3.1 which was replaced orally. UA is not suggestive of UTI. Alcohol level is 16. Urine drug screen is positive for cocaine. Wet prep is negative for yeast, negative for clue cells, negative for Trichomonas. exam is unremarkable. There are no masses. No bleeding. She is medically cleared for psychiatric evaluation and disposition by them. Diagnosis Primary Impression: Bipolar disorder Qualified Codes: F31.60 - Bipolar disorder, current episode mixed, unspecified Additional Impression: Hypokalemia Adalid Bonds MD May 13, 2017 17:04
[2017-05-13 17:57] LABS: AUTOMATED NEUTROPHIL # 4.4 TH/MM3 (1.8-7.7); BASOPHIL # 0.1 TH/MM3 (0-0.2); BASOPHIL % 0.9 % (0.0-2.0); EOSINOPHIL # 0.1 TH/MM3 (0-0.4); EOSINOPHIL % 1.6 % (0.0-4.0); HEMATOCRIT 35.5 % (35.0-46.0); LYMPH % 23.9 % (9.0-44.0); LYMPHOCYTE # 1.6 TH/MM3 (1.0-4.8); MEAN CELL VOLUME 96.3 FL (80.0-100.0); MEAN CORPUSCULAR HEMOGLOBIN 32.6 PG (27.0-34.0); MEAN CORPUSCULAR HGB CONC 33.8 % (32.0-36.0); MEAN PLATELET VOLUME 9.8 FL (7.0-11.0); MONO % 8.2 % (0.0-8.0); MONOCYTE # 0.6 TH/MM3 (0-0.9); NEUT % 65.4 % (16.0-70.0); PLATELET COUNT 238 TH/MM3 (150-450); RED BLOOD COUNT 3.69 MIL/MM3 (4.00-5.30); RED CELL DISTRIBUTION WIDTH 13.7 % (11.6-17.2); WHITE BLOOD COUNT 6.7 TH/MM3 (4.0-11.0)
[2017-05-13 17:59] LABS: AMORPHOUS SEDIMENT, URINE RARE; BILIRUBIN, URINE NEG (NEG); BLOOD, URINE NEG (NEG); GLUCOSE,URINE NEG (NEG); KETONE, URINE NEG (NEG); MUCUS URINE FEW /lpf (OCC); NITRITE,URINE NEG (NEG); PH, URINE 7.5 (5.0-8.5); SQUAMOUS EPITHELIAL CELL URINE 1 /hpf (0-5); URINE COLOR YELLOW (YELLW/STRAW); URINE LEUKOCYTE ESTERASE TRACE (NEG)
[2017-05-13 18:10] LABS: INTERNATIONAL NORMALIZED RATIO 1.1 RATIO; PROTHROMBIN TIME - PATIENT 10.9 SEC (9.8-11.6)
[2017-05-13 18:12] LABS: AST (GOT) 52 U/L (15-37); BICARBONATE 29.1 MEQ/L (21.0-32.0); BLOOD UREA NITROGEN 7 MG/DL (7-18); CALCIUM 8.8 MG/DL (8.5-10.1); CHLORIDE 102 MEQ/L (98-107); CREATININE 0.51 MG/DL (0.50-1.00); GLOMERULAR FILTRATION RATE 127 ML/MIN (>89); GLUCOSE,RANDOM 92 MG/DL (74-106); SODIUM (NA) 139 MEQ/L (136-145)
[2017-05-13 18:16] LABS: ALKALINE PHOSPHATASE 98 U/L (45-117); ALT (GPT) 41 U/L (10-53); TOTAL BILIRUBIN ADULT 0.4 MG/DL (0.2-1.0); TOTAL PROTEIN 6.8 GM/DL (6.4-8.2)
[2017-05-13] MEDS ORDERED: POTASSIUM CHLORIDE 20 MEQ CONTROLLED RELEASE TAB PO ONE (18:30)
[2017-05-13 22:09] VITALS: BP 163/93; PULSE 73; RESP 20; O2SAT 96
--- NOTE | 2017-05-13 23:04 | PD ---
History of Present Illness Chief Complaint: GI Complaint Time Seen by Provider: 22:45 Travel History International Travel<30 Days: No Contact w/Intl Traveler<30days: No Known affected area: No Legal Status Legal Status: Voluntary History of Present Illness: History of Present Illness HPI 51-year-old female with history of bipolar disorder on a voluntary status here for evaluation of several different complaints including intermittent vaginal bleeding, lower abdominal pain. She also requests a psychiatric evaluation. The patient has not taken psychiatric medication for the past 6 years but recently has been feeling more irritable, angry, sad, and has been having more arguments with her . She went to [facility] today to get back on psychiatric medication specifically Prozac, but had to wait 3 hours so she left. She has an appointment on May 26. She presented to the ED in order to obtain a refill on Prozac. Electronic medical record is reviewed. She has one previous visit to the ED for psychiatric complaints in 2013 for refill on Wellbutrin and Ativan. Current toxicology is positive for cocaine and blood alcohol level of 16. She admits to use of cocaine as well as having a couple of drinks every now and then. Patient is seen in main ED. She is sleeping but awakens with verbal stimuli. She is oriented female with disheveled appearance but with nicely manicured fingernails. Her speech is clear, logical and coherent. Her mood is irritable. There is no psychosis and she denies hallucinations. No delusions or paranoia. She denies suicidal or homicidal ideation and states "I wouldn't do it I wouldn't be that stupid to do such a thing". The remainder of psychiatric review of systems is negative. The patient goes on to state that she went to [facility] today to get back on her medication and had to wait 3 hours so she came to the ED instead. She has an appointment at [facility] on May 25 for medication. PFSH Past Medical History Asthma: No Bipolar Disorder: Yes Anxiety: Yes Depression: Yes Cancer: No Cardiovascular Problems: Yes (HTN) Chemotherapy: No COPD: No Diabetes: No Diminished Hearing: No Gastrointestinal Disorders: No Genitourinary: No Heparin Induced Thrombocytopen: No Implanted Vascular Access Dvce: No Musculoskeletal: No Neurologic: No Psychiatric: Yes Reproductive: No Respiratory: Yes Radiation Therapy: No Sickle Cell Disease: No Sleep Apnea: No Tetanus Vaccination: < 5 Years Influenza Vaccination: No ?: Not Past Surgical History Abdominal Surgery: No AICD: No Arteriovenous Shunt: No Cardiac Surgery: No Ear Surgery: No Endocrine Surgery: No Eye Surgery: No Genitourinary Surgery: No Gynecologic Surgery: Yes (Partial Hyst) Hysterectomy: Yes Insulin Pump: No Joint Replacement: No Neurologic Surgery: No Oral Surgery: No Pacemaker: No Thoracic Surgery: Yes (pneumothorax) Tonsillectomy: Yes Other Surgery: Yes Psychiatric History Psychiatric History Hx Psychiatric Treatment: Last psychiatric hospitalization years ago patient does not tell me the exact date. Has received services at [facility]. Last took medication 6 years ago and was prescribed by Dr. Keanu Chou at [facility]. No history of suicide attempts History of Inpatient Treatment: Yes Guns or firearms in home: No Social History , lives with her . 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 Has a prior history of arrest and was charged with assault Hx Alcohol Use: Yes (DAILY BEER) Hx Tobacco Use: Yes (04/27 ppk) Hx Substance Use: No Allergies-Medications (Allergen,Severity, Reaction): Coded Allergies: cephalexin (Unverified Allergy, Severe, RASH, 05/13/17) erythromycin base (Unverified Allergy, Mild, RASH, 05/13/17) Reported Meds & Prescriptions Reported Meds & Active Scripts Active Reported Advil Pm (Ibuprofen-Diphenhydramine) 200-38 Mg Tab 1 Tab PO HS PRN Prozac (Fluoxetine HCl) 40 Mg Cap 40 Mg PO DAILY Review of Systems Musculoskeletal: COMPLAINS OF: Back pain Except as stated in HPI: all other systems reviewed are Neg Mental Status Examination Appearance: Disheveled (appears older than stated age) Consciousness: Alert Orientation: x4 Motor Activity: Normal gait Speech: Unremarkable Language: Adequate Fund of Knowledge: Adequate Attention and Concentration: Adequate Memory: Unremarkable Mood: Angry Affect: Appropriate Thought Process & Associations: Intact, Logical, Goal directed Thought Content: Appropriate Hallucination Type: None Delusion Type: None Suicidal Ideation: No Suicidal Plan: No Suicidal Intention: No Homicidal Ideation: No Homicidal Plan: No Homicidal Intention: No Insight: Fair Judgment: Adequate MDM Medical Decision Making Medical Record Reviewed: Yes Assessment/Plan 51-year-old female with reported history of bipolar disorder who presents to the emergency department on a voluntary status requesting a refill on her Prozac. The patient has not taking any psychiatric medications for the past 6 months. She is reporting that she is feeling irritable as well as experiencing mood swings in which she feels angry as well as happy, sad. The patient went to [facility] this morning to get her medication but was unable to be seen. She was given an appointment for May 25 but wants to begin her Prozac earlier than that. The patient minimizes her use of substances at this time. She is not suicidal and not homicidal. Not psychotic or manic. She is provided with a prescription for Prozac 20 mg to take 1 a day. Risks versus benefits discussed with patient including importance of abstinence from substances while on medication. With SMA. Psychiatrically clear for discharge from ED. Orders Orders Complete Blood Count With Diff (05/13/17 17:01) Comprehensive Metabolic Panel (05/13/17 17:01) Psych Screen (05/13/17 17:01) Drug Screen, Random Urine (05/13/17 17:01) Alcohol (Ethanol) (05/13/17 17:01) Gc And Chlamydia Pcr (05/13/17 17:01) Wet Prep Profile (05/13/17 17:01) Prothrombin Time / Inr (Pt) (05/13/17 17:01) Act Partial Throm Time (Ptt) (05/13/17 17:01) Urinalysis - C+S If Indicated (05/13/17 17:01) Potassium Chloride (Kcl) (05/13/17 18:30) Results Vital Signs Date Time Temp Pulse Resp B/P (MAP) Pulse Ox O2 Delivery O2 Flow Rate FiO2 05/13/17 22:09 73 20 163/93 (116) 96 Room Air 05/13/17 16:41 20 05/13/17 15:54 98.6 77 16 135/71 (92) 97 Room Air Laboratory Tests Test 05/13/17 16:45 05/13/17 17:15 05/13/17 17:20 05/13/17 19:05 Urine Opiates Screen NEG Urine Barbiturates Screen NEG Urine Amphetamines Screen NEG Urine Benzodiazepines Screen NEG Urine Cocaine Screen POS Urine Cannabinoids Screen NEG Chlamydia trachomatis DNA (PCR) NOT DETECTED Neisseria gonorrhoeae DNA (PCR) NOT DETECTED Urine Color YELLOW Urine Turbidity HAZY Urine pH 7.5 Urine Specific [place] 1.008 Urine Protein NEG Urine Glucose (UA) NEG Urine Ketones NEG Urine Occult Blood NEG Urine Nitrite NEG Urine Bilirubin NEG Urine Urobilinogen LESS THAN 2.0 Urine Leukocyte Esterase TRACE Urine RBC 1 Urine WBC 1 Urine Squamous Epithelial Cells 1 Urine Amorphous Sediment RARE Urine Mucus FEW Microscopic Urinalysis Comment CULT NOT INDICATED White Blood Count 6.7 Red Blood Count 3.69 Hemoglobin 12.0 Hematocrit 35.5 Mean Corpuscular Volume 96.3 Mean Corpuscular Hemoglobin 32.6 Mean Corpuscular Hemoglobin Concent 33.8 Red Cell Distribution Width 13.7 Platelet Count 238 Mean Platelet Volume 9.8 Neutrophils (%) (Auto) 65.4 Lymphocytes (%) (Auto) 23.9 Monocytes (%) (Auto) 8.2 Eosinophils (%) (Auto) 1.6 Basophils (%) (Auto) 0.9 Neutrophils # (Auto) 4.4 Lymphocytes # (Auto) 1.6 Monocytes # (Auto) 0.6 Eosinophils # (Auto) 0.1 Basophils # (Auto) 0.1 CBC Comment DIFF FINAL Differential Comment Prothrombin Time 10.9 Prothromb Time International Ratio 1.1 Activated Partial Thromboplast Time 32.1 Blood Urea Nitrogen 7 Creatinine 0.51 Random Glucose 92 Total Protein 6.8 Albumin 3.0 Calcium Level 8.8 Alkaline Phosphatase 98 Aspartate Amino Transf (AST/SGOT) 52 Alanine Aminotransferase (ALT/SGPT) 41 Total Bilirubin 0.4 Sodium Level 139 Potassium Level 3.1 Chloride Level 102 Carbon Dioxide Level 29.1 Anion Gap 8 Estimat Glomerular Filtration Rate 127 Ethyl Alcohol Level 16 Clue Cells (Wet Prep) NONE SEEN Vaginal Trichomonas (Wet Prep) NONE SEEN Vaginal Yeast (Wet Prep) NONE SEEN Diagnosis Primary Impression: Bipolar disorder Additional Impression: Hypokalemia Psychiatrically Cleared: Yes Prescriptions Fluoxetine (Prozac) 20 Mg Cap 20 MG PO DAILY for Depression Control for 14 Days, #14 CAP 0 Refills Prov: Alma Rosa [employer] Mabel Baxter [employer] 05/13/17 Disposition: 01 DISCHARGE HOME Condition: Stable Problem Qualifiers Primary Impression: Bipolar disorder Qualified Codes: F31.61 - Bipolar disorder, current episode mixed, mild Adan,Gloria Mabel Baxter [employer] PROGRAMMER May 13, 2017 23:04
[2017-05-13] MEDS ORDERED: PROZ20CA11 PO (23:13)
[2017-05-13 23:34] VITALS: BP 123/72
== END 2017-05-14 06:51 | disposition home or self-care (01) ==
LOC: NEPD 15:52
DX: F31.61 Bipolar disorder, current episode mixed, mild (principal); E87.6 Hypokalemia; F17.200 Nicotine dependence, unspecified, uncomplicated; R10.30 Lower abdominal pain, unspecified; Z79.899 Other long term (current) drug therapy
CPT/HCPCS: 80053; 80307; 81001; 85025; 85610; 85730; 87210; 87491; 87591; 99283